=== PATIENT | female | born 1955 | race Caucasian/White ===

== ENCOUNTER → 2016-05-24 | Outpatient (CLI) | payer OTHER ==
--- NOTE | 2016-05-24 12:48 | CT ---
CT Scan of the Chest (Without Contrast) Clinical Indications: Chronic cough. Prior lung nodule noted in July 2015. Comparison: Chest x-ray March 23, 2016. Technique: Multidetector helical CT was performed from the superior thoracic inlet to the diaphragm. No intravenous contrast was given. The radiologist manipulated images at the computer workstation. Dose reduction techniques were utilized. Findings: The lungs are clear and there is no pleural effusion. There are no masses in the lungs an d pleura. The great vessels and pericardium are grossly unremarkable. No pneumothorax. Impression: 1. No radiographic evidence to explain the patient's chronic cough. 2. No visualized pulmonary nodules. Per patient history, there was a nodule on a study of July 2015. If old outside films become available, I would be happy to compare them.
== END ==
LOC: CIMAGING 10:54
PROVIDERS: ATTEND Nurse Practitioner
DX: R05 Cough (principal)
CPT/HCPCS: 71250-PO